=== PATIENT | female | born 1940 | race Caucasian/White ===

== ENCOUNTER 2018-12-11 07:32 | Outpatient (CLI) | payer MEDICARE, BC, SELFPAY ==
[2018-12-11 09:42] LABS: Anion Gap 7.3 mmol/L (3-11); BUN 17 mg/dL (7-18); CO2 31.7 mmol/L (21.0-32.0); CREATININE 0.83 mg/dL (0.55-1.02); Calcium 9.2 mg/dL (8.5-10.1); Chloride 101 mmol/L (98-107); Glucose 90 mg/dL (70-100); Potassium 4.1 mmol/L (3.5-5.1); Sodium 140 mmol/L (136-145)
== END 2018-12-11 07:52 ==
PROVIDERS: PCP Nurse Practitioner Family; Visit Provider Nurse Practitioner Family
DX: E78.5 Hyperlipidemia, unspecified (principal); Z13.1 Encounter for screening for diabetes mellitus; Z86.79 Personal history of other diseases of the circulatory system
CPT/HCPCS: 36415; 80048

== ENCOUNTER 2022-06-15 02:51 | Outpatient (CLI) | payer MEDICARE, BC, SELFPAY ==
[2022-06-15 12:18] LABS: Anion Gap 6.7 mmol/L (3-11); BUN 16 mg/dL (7-18); CO2 31.3 mmol/L (21.0-32.0); CREATININE 0.9 mg/dL (0.55-1.02); Calcium 10.1 mg/dL (8.5-10.1); Chloride 100 mmol/L (98-107); Estimated GFR 63.43 (mL/min/1.73m2); Glucose 97 mg/dL (74-106); Potassium 4.7 mmol/L (3.5-5.1); Sodium 138 mmol/L (136-145)
== END 2022-06-15 02:52 | disposition home or self-care (01) ==
LOC: LBO 02:51
PROVIDERS: PCP Nurse Practitioner Family; Visit Provider Nurse Practitioner Family
DX: I10 Essential (primary) hypertension (principal); Z13.1 Encounter for screening for diabetes mellitus
CPT/HCPCS: 36415; 80048

== ENCOUNTER 2023-08-04 01:01 | Outpatient (CLI) | payer MEDICARE, SELFPAY ==
[2023-08-04 11:20] LABS: Anion Gap 3.6 mmol/L (3-11); BUN 15 mg/dL (7-18); CO2 30.4 mmol/L (21.0-32.0); CREATININE 0.9 mg/dL (0.55-1.02); Calcium 9.7 mg/dL (8.5-10.1); Chloride 100 mmol/L (98-107); Estimated GFR 63.04 (mL/min/1.73m2); Glucose 100 mg/dL (74-106); Potassium 4.2 mmol/L (3.5-5.1); Sodium 134 mmol/L (136-145)
== END 2023-08-04 01:02 | disposition home or self-care (01) ==
LOC: LBO 01:01
PROVIDERS: PCP Nurse Practitioner Family; Visit Provider Nurse Practitioner Family
DX: I10 Essential (primary) hypertension (principal); Z13.1 Encounter for screening for diabetes mellitus
CPT/HCPCS: 36415; 80048

== ENCOUNTER 2023-12-08 16:37 | Outpatient (REF) | payer MEDICARE, BC, SELFPAY | END 2023-12-08 16:38 | disposition home or self-care (01) | LOC: LBN 16:37 | PROVIDERS: PCP Nurse Practitioner Adult Health; Visit Provider Nurse Practitioner Family | DX: L03.115 Cellulitis of right lower limb (principal); L08.89 Other specified local infections of the skin and subcutaneous tissue | CPT/HCPCS: 87070; 87205 ==

== ENCOUNTER → 2024-04-05 15:10 | Outpatient (CLI) | payer MEDICARE, BC, SELFPAY ==
--- NOTE | 2024-04-05 15:33 | DI.RAD_ITS ---
Exam(s) XR CHEST 2V PA LATERAL EXAM: XR CHEST 2V PA LATERAL CLINICAL HISTORY: r/o pna, rib, bleb pathology, cough, SOB, rib pain, R05.9, R06.02, R07.81 TECHNIQUE: 2D digital imaging was performed of the chest. Two images were obtained. PA and lateral views were obtained. COMPARISON: CR CHEST 2 VIEWS PA,LAT from 12/27/2008 FINDINGS: MEDIASTINUM: Normal. HEART: Normal. PULMONARY VASCULATURE: Normal. LUNGS: The lungs appear hyperinflated with flattened diaphragms suggesting underlying COPD. No focal consolidating infiltrate. PLEURAL SPACE: There is blunting of the posterior costophrenic angle which may represent scarring or small effusion. No pneumothorax. BONE:Within normal limits for the patient's age. OTHER FINDINGS:Normal. IMPRESSION: No focal consolidating infiltrates. DATA REPOSITORY: RADIATION DOSE DELIVERED:
== END ==
PROVIDERS: PCP Nurse Practitioner Adult Health; Visit Provider Student in an Organized Health Care Education/Training Program
DX: R05.9 Cough, unspecified (principal); R06.02 Shortness of breath; R07.81 Pleurodynia
CPT/HCPCS: 71046